=== PATIENT | male | born 2000 | race Two or more races ===

== ENCOUNTER 2018-08-19 10:13 | Emergency (ER) | payer MEDICAID ==
[~2018-08-19] VITALS: Ht 172.7 cm; Wt 53.5 kg
[2018-08-19 10:42] VITALS: Ht 172.7 cm; Wt 53.5 kg
[2018-08-19 13:19] LABS: BASOPHIL % 0.3 % (0-2); PLATELET COUNT 228 x10^3mcL (130-400); RED CELL DISTRIBUTION WIDTH 12.5 % (11.5-14.5)
[2018-08-19 13:54] LABS: CARBON DIOXIDE 24.6 mmol/L (21-32); CHLORIDE SERUM 97 mmol/L (98-107); GFR1 > 60 mL/min; GLUCOSE SERUM 92 mg/dL (74-106); POTASSIUM SERUM 3.7 mmol/L (3.5-5.1); SODIUM SERUM 133 mmol/L (136-145)
[2018-08-19 13:58] LABS: ALBUMIN 4.1 g/dL (3.4-5.0); ALKALINE PHOSPHATASE 74 U/L (46-116); ALT/SGPT 34 U/L (16-63); AST/SGOT 27 U/L (15-37); BILIRUBIN TOTAL 0.9 mg/dL (0.20-1.00); LIPASE 120 IU/L (73-393)
[2018-08-19 14:03] LABS: TOTAL PROTEIN, SERUM 8.6 g/dL (6.4-8.2)
[2018-08-19 14:44] LABS: UA SPECIFIC GRAVITY 1.025 (1.005-1.035); microscopic required? YES; urine erythrocyte 1+ (NEGATIVE)
[2018-08-19 15:23] VITALS: BP 122/71
== END 2018-08-19 15:23 | disposition home or self-care (01) ==
LOC: ED 10:13
PROVIDERS: Emergency Medicine
DX: B34.9 Viral infection, unspecified (principal)
CPT/HCPCS: 87804; J1885; J2405; Q0092

== ENCOUNTER 2018-08-20 20:54 | Emergency (ER) | payer MEDICAID ==
[~2018-08-20] VITALS: Ht 172.7 cm; Wt 53.7 kg
[2018-08-20 21:10] VITALS: BP 137/90; Ht 172.7 cm; Wt 53.7 kg
== END 2018-08-20 22:26 | disposition home or self-care (01) ==
LOC: ED 20:54
DX: J02.9 Acute pharyngitis, unspecified (principal)
CPT/HCPCS: J0696; J7512

== ENCOUNTER 2019-10-04 22:06 | Emergency (ER) | payer MEDICAID ==
[~2019-10-04] VITALS: Ht 177.8 cm; Wt 60.0 kg
[2019-10-04 22:27] VITALS: BP 135/93; Ht 177.8 cm; Wt 60.0 kg
== END 2019-10-05 00:25 | disposition home or self-care (01) ==
LOC: ED 22:06
DX: J20.9 Acute bronchitis, unspecified (principal)
CPT/HCPCS: 87804; J7620

== ENCOUNTER 2019-12-04 21:06 | Emergency (ER) | payer MEDICAID ==
[~2019-12-04] VITALS: Ht 177.8 cm; Wt 59.9 kg
[2019-12-04 21:40] VITALS: BP 134/82; Ht 177.8 cm; Wt 59.9 kg
== END 2019-12-04 22:18 | disposition home or self-care (01) ==
LOC: ED 21:06
DX: J18.9 Pneumonia, unspecified organism (principal)

== ENCOUNTER 2020-06-05 18:36 | Emergency (ER) | payer MEDICAID ==
[~2020-06-05] VITALS: Ht 172.7 cm; Wt 62.3 kg
[2020-06-05 19:45] VITALS: Ht 172.7 cm; Wt 62.3 kg
[2020-06-05 21:56] VITALS: BP 133/75
== END 2020-06-05 21:56 | disposition home or self-care (01) ==
LOC: ED 18:36
DX: S62.326A Displaced fracture of shaft of fifth metacarpal bone, right hand, initial encounter for closed fracture (principal); W22.01XA Walked into wall, initial encounter; Y93.89 Activity, other specified; Y99.8 Other external cause status; Y92.89 Other specified places as the place of occurrence of the external cause
CPT/HCPCS: Q0092